=== PATIENT | female | born 1990 | race Caucasian/White ===

== ENCOUNTER 2018-10-13 16:36 | Emergency (ER) | payer SELFPAY ==
[~2018-10-13] VITALS: Ht 165.1 cm; Wt 69.9 kg
[2018-10-13 17:17] VITALS: BP 128/95
--- NOTE | 2018-10-13 17:47 | NUR ---
PT TO ER BED 2
--- NOTE | 2018-10-13 18:18 | NUR ---
27F C/O 11/25 PRESSURE LIKE HEADACHE FROM TOP OF HEAD TO NECK X 1 WEEK. [place] IS EPISODIC. EACH EPISODE CAN LAST "HOURS". +BLURRY VISION, +PHOTOPHOBIA, +PHONOPHOBIA. TX WITH OTC EXCEDRIN WITH MINOR RELIEF. DENIES N/V/D. HX: NONE RX: NONE Addendum: 10/13/18 at 1818 by MANUEL FULL ROM IN NECK
[2018-10-13] MEDS ORDERED: KETOROLAC 30 MG/ML VIAL IM ONE (18:40)
[2018-10-13] MEDS ORDERED: PROCHLORPERAZINE 10 MG/2 ML VIAL IM ONE (18:40)
[2018-10-13 19:37] VITALS: BP 131/92
== END 2018-10-13 19:37 | disposition home or self-care (01) ==
LOC: MED 16:36
DX: G43.909 Migraine, unspecified, not intractable, without status migrainosus (principal)
CPT/HCPCS: 81025; 96372; 99283; J0780; J1885